=== PATIENT | female | born 1960 | race Two or more races ===

== ENCOUNTER 2019-10-09 09:37 | Outpatient (CLI) | payer OTHER | END 2019-10-09 09:43 | disposition home or self-care (01) | LOC: SONOGRAMA 09:37 | PROVIDERS: ATTEND Surgery | DX: E21.2 Other hyperparathyroidism (principal) ==

== ENCOUNTER 2019-11-25 08:53 | Inpatient (IN) | payer OTHER ==
[~2019-11-25 08:53] MED LIST: ZESTORETIC 10-1 EACH PO
== END 2019-11-26 12:43 | disposition home or self-care (01) | DRG 627 ==
LOC: CIR.AMB 08:53 → O/R 18:19 → SURG 19:46
PROVIDERS: ADMIT Surgery; ATTEND Surgery
PROC: 0GBM0ZZ Excision of Left Superior Parathyroid Gland, Open Approach (ICD-10-PCS; principal; 2019-11-25 09:30)
DX: E21.0 Primary hyperparathyroidism (principal)